=== PATIENT | female | born 1935 | race Caucasian/White ===

== ENCOUNTER 2021-04-17 16:25 | Inpatient (IN) ==
[2021-04-17] MEDS ORDERED: 0.9 % Sodium Chloride 1,000 ML IVC ONE (16:57)
[2021-04-17 17:37] LABS: Basophils % 0.4 %; Eosinophils % 0.3 %; Hematocrit 42.2 % (35.3-44.9); Hemoglobin 13.7 g/dL (11.5-15.4); Immature Granulocytes % 0.3 % (0-4); Lymphocytes # 0.7 K/mcL (0.6-4.6); Lymphocytes % 9.2 %; Mean Corpuscular HGB Conc 32.5 g/dL (31.6-35.5); Mean Corpuscular Hemoglobin 30.9 pg (28.0-33.3); Mean Corpuscular Volume 95.3 fL (83.0-100.0); Monocytes # 0.6 K/mcL (0.0-1.3); Monocytes % 7.4 %; Neutrophils # 6.2 K/mcL (1.6-8.9); Platelet Count 190 K/mcL (140-400); Red Blood Count 4.43 M/mcL (3.82-4.97); Red Cell Distribution Width 14.4 % (11.5-14.5); Segmented Neutrophils % 82.4 %; White Blood Count 7.5 K/mcL (4.3-11.1)
[2021-04-17 17:44] LABS: INR 1.1; Prothrombin Time 12.2 Seconds (9.4-12.1)
[2021-04-17 18:03] LABS: BUN/Creatinine Ratio 17 (6-26); Blood Urea Nitrogen 15 mg/dL (8-23); Calcium 9.3 mg/dL (8.6-10.3); Carbon Dioxide 28 mEq/L (23-29); Chloride 98 mEq/L (98-107); Glucose 156 mg/dL (70-105); Osmolality,Calculated 282 (280-300); Potassium 4.5 mEq/L (3.5-5.1); Sodium 134 mEq/L (136-145); eGFR For African Americans > 60 (> 60); eGFR For Non-African Americans 60 (> 60)
[2021-04-17 18:04] LABS: Troponin I < 0.03 ng/mL (< 0.04)
[2021-04-17] MEDS ORDERED: Naloxone 0.4 MG/ML INJ IVP PRN (18:36)
[2021-04-17] MEDS ORDERED: Ondansetron 4 MG/2 ML VIAL IVP PRN (18:36)
[2021-04-17] MEDS ORDERED: *HR* OxyCODONE/APAP 5/325 TABLET PO PRN (18:41)
[2021-04-17 19:36] LABS: Bilirubin,Urine Negative (Negative); Blood,Urine Negative (Negative); Clarity,Urine Clear (Clear); Color,Urine Light-Yellow (Yellow); Glucose,Urine (UA) Normal (Normal); Ketones,Urine Trace mg/dL (Negative); Leukocyte Esterase,Urine Negative (Negative); Nitrite,Urine Negative (Negative); PH,Urine 6.5 pH Units (5.0-8.0); Protein,Urine Trace mg/dL (Neg-Trace); Specific Gravity,Urine 1.018 (1.010-1.025); Urobilinogen,Urine Normal (Normal)
[2021-04-17 19:59] LABS: Adenovirus Not Detected (Not Detect); Bordetella Pertussis Not Detected (Not Detect); Chlamydophila pneumoniae Not Detected (Not Detect); Coronavirus 229E Not Detected (Not Detect); Coronavirus HKU1 Not Detected (Not Detect); Coronavirus NL63 Not Detected (Not Detect); Coronavirus OC43 Not Detected (Not Detect); Human Metapneumovirus Not Detected (Not Detect); Human Rhinovirus/Enterovirus Not Detected (Not Detect); Influenza A Subtype 2009 H1 Not Detected (Not Detect); Influenza B Not Detected (Not Detect); Mycoplasma pneumoniae Not Detected (Not Detect); Parainfluenza Virus 1 Not Detected (Not Detect); Parainfluenza Virus 2 Not Detected (Not Detect); Parainfluenza Virus 3 Not Detected (Not Detect); Parainfluenza Virus 4 Not Detected (Not Detect); Respiratory Syncytial Virus Not Detected (Not Detect); SARS-CoV-2 Not Detected (Not Detect)
[2021-04-17] MEDS ORDERED: Perflutren Lipid Microsphere 1.3 ML in 0.9 % Sodium Chloride 8.7 ML IVP PRN (20:39)
[2021-04-17] MEDS: GuaiFENesin Liq 200 MG/10 ML UDC PO PRN (23:15)
[2021-04-18 02:43] LABS: Basophils # 0.1 K/mcL (0.0-0.2); Basophils % 0.6 %; Eosinophils # 0.1 K/mcL (0.0-0.6); Eosinophils % 0.7 %; Hematocrit 37.1 % (35.3-44.9); Immature Granulocytes % 0.4 % (0-4); Lymphocytes # 1.1 K/mcL (0.6-4.6); Lymphocytes % 13.6 %; Mean Corpuscular HGB Conc 31.8 g/dL (31.6-35.5); Mean Corpuscular Hemoglobin 30.3 pg (28.0-33.3); Mean Corpuscular Volume 95.1 fL (83.0-100.0); Mean Platelet Volume 10.3 fL (9.4-12.4); Monocytes # 0.8 K/mcL (0.0-1.3); Monocytes % 9.3 %; Neutrophils # 6.1 K/mcL (1.6-8.9); Platelet Count 180 K/mcL (140-400); Red Cell Distribution Width 14.4 % (11.5-14.5); Segmented Neutrophils % 75.4 %; White Blood Count 8.1 K/mcL (4.3-11.1)
[2021-04-18 02:47] LABS: Hemoglobin 11.8 g/dL (11.5-15.4)
[2021-04-18 02:48] LABS: BUN/Creatinine Ratio 22 (6-26); Blood Urea Nitrogen 14 mg/dL (8-23); Calcium 8.4 mg/dL (8.6-10.3); Carbon Dioxide 28 mEq/L (23-29); Chloride 101 mEq/L (98-107); Glucose 108 mg/dL (70-105); Magnesium 1.8 mg/dL (1.6-2.6); Osmolality,Calculated 277 (280-300); Potassium 4.1 mEq/L (3.5-5.1); Sodium 133 mEq/L (136-145); eGFR For African Americans > 60 (> 60); eGFR For Non-African Americans > 60 (> 60)
[2021-04-18] MEDS: *HR* Heparin 5,000 UNIT/ML VIAL SQ SCH ×2 (06:39→16:19)
[2021-04-18] MEDS: *HR* OxyCODONE Immed Rel 5 MG TABLET PO PRN ×2 (12:12→19:37)
[2021-04-18] MEDS ORDERED: *HR* Labetalol 20 MG/4 ML SYRINGE IVP PRN (14:31)
[2021-04-18] MEDS: GuaiFENesin Liq 200 MG/10 ML UDC PO PRN (19:38)
[2021-04-19] MEDS: *HR* Heparin 5,000 UNIT/ML VIAL SQ SCH ×2 (04:39→16:52)
[2021-04-19] MEDS: *HR* OxyCODONE Immed Rel 5 MG TABLET PO PRN ×2 (04:47→19:47)
[2021-04-19] MEDS: amLODIPine 5 MG TABLET PO SCH (08:33)
[2021-04-19] MEDS: Folic Acid 1 MG TABLET PO SCH ×2 (08:33→19:48)
[2021-04-19] MEDS: Budesonide/Formoterol 160/4.5 1 PUFF INH IH SCH ×2 (11:11→20:16)
[2021-04-19] MEDS: Nicotine 21 MG PATCH.TD24 TD SCH (21:12)
[2021-04-20] MEDS: *HR* Heparin 5,000 UNIT/ML VIAL SQ SCH ×2 (05:47→16:35)
[2021-04-20] MEDS: Budesonide/Formoterol 160/4.5 1 PUFF INH IH SCH ×2 (07:30→20:18)
[2021-04-20] MEDS: amLODIPine 5 MG TABLET PO SCH (09:43)
[2021-04-20] MEDS: Folic Acid 1 MG TABLET PO SCH ×2 (09:43→22:10)
[2021-04-20] MEDS: *HR* HYDROcodone/Acet 5/325 mg TABLET PO PRN (09:44)
[2021-04-20] MEDS: Nicotine 21 MG PATCH.TD24 TD SCH (09:44)
[2021-04-21] MEDS: *HR* OxyCODONE Immed Rel 5 MG TABLET PO PRN ×2 (02:49→20:08)
[2021-04-21] MEDS: *HR* Heparin 5,000 UNIT/ML VIAL SQ SCH ×2 (05:29→15:25)
[2021-04-21] MEDS: Budesonide/Formoterol 160/4.5 1 PUFF INH IH SCH ×2 (07:49→19:57)
[2021-04-21] MEDS: Nicotine 21 MG PATCH.TD24 TD SCH (10:28)
[2021-04-21] MEDS: Folic Acid 1 MG TABLET PO SCH ×2 (10:28→20:08)
[2021-04-21] MEDS: *HR* HYDROcodone/Acet 5/325 mg TABLET PO PRN (10:32)
[2021-04-21] MEDS: amLODIPine 5 MG TABLET PO SCH (10:32)
[2021-04-21 17:01] LABS: Adenovirus Not Detected (Not Detect); Bordetella Pertussis Not Detected (Not Detect); Chlamydophila pneumoniae Not Detected (Not Detect); Coronavirus 229E Not Detected (Not Detect); Coronavirus HKU1 Not Detected (Not Detect); Coronavirus NL63 Not Detected (Not Detect); Coronavirus OC43 Not Detected (Not Detect); Human Metapneumovirus Not Detected (Not Detect); Human Rhinovirus/Enterovirus Not Detected (Not Detect); Influenza A Subtype 2009 H1 Not Detected (Not Detect); Influenza B Not Detected (Not Detect); Mycoplasma pneumoniae Not Detected (Not Detect); Parainfluenza Virus 1 Not Detected (Not Detect); Parainfluenza Virus 2 Not Detected (Not Detect); Parainfluenza Virus 3 Not Detected (Not Detect); Parainfluenza Virus 4 Not Detected (Not Detect); Respiratory Syncytial Virus Not Detected (Not Detect); SARS-CoV-2 Not Detected (Not Detect)
[2021-04-22] MEDS: *HR* Heparin 5,000 UNIT/ML VIAL SQ SCH ×2 (05:13→18:18)
[2021-04-22] MEDS: Budesonide/Formoterol 160/4.5 1 PUFF INH IH SCH ×2 (08:18→20:13)
[2021-04-22] MEDS ORDERED: Ipratropium/Albuterol Neb 3 ML IH ONE (08:26)
[2021-04-22 09:18] LABS: Basophils % 0.3 %; Eosinophils % 0.3 %; Hemoglobin 12.4 g/dL (11.5-15.4); Immature Granulocytes % 0.1 % (0-4); Lymphocytes # 0.6 K/mcL (0.6-4.6); Lymphocytes % 8.4 %; Mean Corpuscular HGB Conc 31.8 g/dL (31.6-35.5); Mean Corpuscular Hemoglobin 30.2 pg (28.0-33.3); Mean Corpuscular Volume 95.1 fL (83.0-100.0); Mean Platelet Volume 10.2 fL (9.4-12.4); Monocytes # 0.8 K/mcL (0.0-1.3); Monocytes % 11.6 %; Neutrophils # 5.7 K/mcL (1.6-8.9); Platelet Count 210 K/mcL (140-400); Segmented Neutrophils % 79.3 %; White Blood Count 7.2 K/mcL (4.3-11.1)
[2021-04-22] MEDS: Acetaminophen 325 MG TABLET PO PRN (09:27)
[2021-04-22] MEDS: Nicotine 21 MG PATCH.TD24 TD SCH (09:27)
[2021-04-22] MEDS: amLODIPine 5 MG TABLET PO SCH (09:27)
[2021-04-22] MEDS: Folic Acid 1 MG TABLET PO SCH ×2 (09:27→20:18)
[2021-04-22 09:37] LABS: BUN/Creatinine Ratio 36 (6-26); Blood Urea Nitrogen 21 mg/dL (8-23); Calcium 8.9 mg/dL (8.6-10.3); Carbon Dioxide 30 mEq/L (23-29); Chloride 97 mEq/L (98-107); Glucose 110 mg/dL (70-105); Osmolality,Calculated 280 (280-300); Potassium 4.2 mEq/L (3.5-5.1); Sodium 133 mEq/L (136-145); eGFR For African Americans > 60 (> 60); eGFR For Non-African Americans > 60 (> 60)
[2021-04-22] MEDS ORDERED: Isovue-370 500 ML BOTTLE IVP ONE (10:49)
[2021-04-22] MEDS ORDERED: Ipratropium/Albuterol Neb 3 ML IH PRN (14:17)
[2021-04-22] MEDS: Ipratropium/Albuterol Neb 3 ML IH SCH ×4 (15:31→23:40)
[2021-04-22] MEDS: Azithromycin 500 MG in 0.9 % Sodium Chloride 250 ML IVPB SCH (18:03)
[2021-04-22] MEDS: cefTRIAXone 1,000 MG in Water for inj. (sterile) 10 ML IVP SCH (18:04)
[2021-04-22] MEDS: predniSONE 20 MG TABLET PO SCH (18:13)
[2021-04-22 20:13] LABS: ABG Base Excess 4 mEq/L (-2 to 3); ABG HCO3 29 mEq/L (21-27); ABG Oxygen Saturation 86 % (95-98); ABG PCO2 47 mmHg (35-45); ABG PO2 52 mmHg (85-104); ABG TCO2 31 mEq/L (20-26)
[2021-04-22] MEDS ORDERED: Furosemide 20 MG/2 ML VIAL IVP ONE (20:19)
[2021-04-23 02:48] LABS: Basophils % 0.1 %; Hematocrit 38.5 % (35.3-44.9); Hemoglobin 12.5 g/dL (11.5-15.4); Immature Granulocytes % 0.3 % (0-4); Lymphocytes # 0.2 K/mcL (0.6-4.6); Lymphocytes % 1.9 %; Mean Corpuscular HGB Conc 32.5 g/dL (31.6-35.5); Mean Corpuscular Hemoglobin 31.2 pg (28.0-33.3); Mean Platelet Volume 10.4 fL (9.4-12.4); Monocytes # 0.4 K/mcL (0.0-1.3); Monocytes % 4.2 %; Neutrophils # 8.9 K/mcL (1.6-8.9); Platelet Count 218 K/mcL (140-400); Red Blood Count 4.01 M/mcL (3.82-4.97); Red Cell Distribution Width 13.9 % (11.5-14.5); Segmented Neutrophils % 93.5 %; White Blood Count 9.5 K/mcL (4.3-11.1)
[2021-04-23 03:07] LABS: Platelet Estimate Normal (Normal)
[2021-04-23 03:14] LABS: BUN/Creatinine Ratio 35 (6-26); Blood Urea Nitrogen 25 mg/dL (8-23); Calcium 9.1 mg/dL (8.6-10.3); Carbon Dioxide 31 mEq/L (23-29); Chloride 97 mEq/L (98-107); Glucose 172 mg/dL (70-105); Osmolality,Calculated 288 (280-300); Potassium 4.4 mEq/L (3.5-5.1); Sodium 135 mEq/L (136-145); eGFR For African Americans > 60 (> 60); eGFR For Non-African Americans > 60 (> 60)
[2021-04-23] MEDS: Ipratropium/Albuterol Neb 3 ML IH SCH ×10 (03:38→23:30)
[2021-04-23] MEDS: *HR* Heparin 5,000 UNIT/ML VIAL SQ SCH ×2 (04:58→15:54)
[2021-04-23] MEDS: Budesonide/Formoterol 160/4.5 1 PUFF INH IH SCH ×2 (07:22→19:23)
[2021-04-23] MEDS: Folic Acid 1 MG TABLET PO SCH ×2 (08:07→19:14)
[2021-04-23] MEDS: cefTRIAXone 1,000 MG in Water for inj. (sterile) 10 ML IVP SCH (08:07)
[2021-04-23] MEDS: predniSONE 20 MG TABLET PO SCH (08:07)
[2021-04-23] MEDS: amLODIPine 5 MG TABLET PO SCH (08:07)
[2021-04-23] MEDS: Nicotine 21 MG PATCH.TD24 TD SCH (08:07)
[2021-04-23] MEDS: Azithromycin 500 MG in 0.9 % Sodium Chloride 250 ML IVPB SCH (15:54)
[2021-04-23] MEDS: Acetaminophen 325 MG TABLET PO PRN (23:09)
[2021-04-24] MEDS: Ipratropium/Albuterol Neb 3 ML IH SCH ×10 (03:32→20:25)
[2021-04-24 03:40] LABS: Hematocrit 36.9 % (35.3-44.9); Hemoglobin 11.6 g/dL (11.5-15.4); Mean Corpuscular HGB Conc 31.4 g/dL (31.6-35.5); Mean Corpuscular Hemoglobin 29.7 pg (28.0-33.3); Mean Corpuscular Volume 94.6 fL (83.0-100.0); Mean Platelet Volume 10.1 fL (9.4-12.4); Platelet Count 262 K/mcL (140-400); Red Cell Distribution Width 13.8 % (11.5-14.5); White Blood Count 10.4 K/mcL (4.3-11.1)
[2021-04-24 03:55] LABS: BUN/Creatinine Ratio 63 (6-26); Blood Urea Nitrogen 40 mg/dL (8-23); Calcium 9.1 mg/dL (8.6-10.3); Carbon Dioxide 31 mEq/L (23-29); Chloride 95 mEq/L (98-107); Glucose 149 mg/dL (70-105); Osmolality,Calculated 287 (280-300); Potassium 3.9 mEq/L (3.5-5.1); Sodium 132 mEq/L (136-145); eGFR For African Americans > 60 (> 60); eGFR For Non-African Americans > 60 (> 60)
[2021-04-24] MEDS: *HR* Heparin 5,000 UNIT/ML VIAL SQ SCH ×2 (05:17→17:22)
[2021-04-24] MEDS: Budesonide/Formoterol 160/4.5 1 PUFF INH IH SCH ×2 (07:32→20:25)
[2021-04-24 09:10] LABS: Adenovirus Not Detected (Not Detect); Bordetella Pertussis Not Detected (Not Detect); Chlamydophila pneumoniae Not Detected (Not Detect); Coronavirus 229E Not Detected (Not Detect); Coronavirus HKU1 Not Detected (Not Detect); Coronavirus NL63 Not Detected (Not Detect); Coronavirus OC43 Not Detected (Not Detect); Human Metapneumovirus Not Detected (Not Detect); Human Rhinovirus/Enterovirus Not Detected (Not Detect); Influenza A Subtype 2009 H1 Not Detected (Not Detect); Influenza B Not Detected (Not Detect); Mycoplasma pneumoniae Not Detected (Not Detect); Parainfluenza Virus 1 Not Detected (Not Detect); Parainfluenza Virus 2 Not Detected (Not Detect); Parainfluenza Virus 3 Not Detected (Not Detect); Parainfluenza Virus 4 Not Detected (Not Detect); Respiratory Syncytial Virus Not Detected (Not Detect); SARS-CoV-2 Not Detected (Not Detect)
[2021-04-24] MEDS: Folic Acid 1 MG TABLET PO SCH ×2 (09:11→19:31)
[2021-04-24] MEDS: predniSONE 20 MG TABLET PO SCH (09:11)
[2021-04-24] MEDS: amLODIPine 5 MG TABLET PO SCH (09:11)
[2021-04-24] MEDS: cefTRIAXone 1,000 MG in Water for inj. (sterile) 10 ML IVP SCH (09:13)
[2021-04-24] MEDS: Nicotine 21 MG PATCH.TD24 TD SCH (09:17)
[2021-04-24] MEDS: Azithromycin 500 MG in 0.9 % Sodium Chloride 250 ML IVPB SCH (16:12)
[2021-04-25] MEDS: Ipratropium/Albuterol Neb 3 ML IH SCH ×8 (00:35→20:24)
[2021-04-25] MEDS: Acetaminophen 325 MG TABLET PO PRN (02:43)
[2021-04-25 04:52] LABS: Hematocrit 34.1 % (35.3-44.9); Hemoglobin 11.1 g/dL (11.5-15.4); Mean Corpuscular HGB Conc 32.6 g/dL (31.6-35.5); Mean Corpuscular Hemoglobin 30.7 pg (28.0-33.3); Mean Corpuscular Volume 94.5 fL (83.0-100.0); Platelet Count 266 K/mcL (140-400); Red Blood Count 3.61 M/mcL (3.82-4.97); Red Cell Distribution Width 13.7 % (11.5-14.5); White Blood Count 9.8 K/mcL (4.3-11.1)
[2021-04-25 05:09] LABS: BUN/Creatinine Ratio 57 (6-26); Blood Urea Nitrogen 31 mg/dL (8-23); Calcium 8.9 mg/dL (8.6-10.3); Carbon Dioxide 32 mEq/L (23-29); Chloride 95 mEq/L (98-107); Glucose 113 mg/dL (70-105); Osmolality,Calculated 281 (280-300); Potassium 4.1 mEq/L (3.5-5.1); Sodium 132 mEq/L (136-145); eGFR For African Americans > 60 (> 60); eGFR For Non-African Americans > 60 (> 60)
[2021-04-25] MEDS: *HR* Heparin 5,000 UNIT/ML VIAL SQ SCH ×2 (05:11→17:41)
[2021-04-25] MEDS: Budesonide/Formoterol 160/4.5 1 PUFF INH IH SCH ×2 (07:51→20:24)
[2021-04-25] MEDS: cefTRIAXone 1,000 MG in Water for inj. (sterile) 10 ML IVP SCH (07:54)
[2021-04-25] MEDS: amLODIPine 5 MG TABLET PO SCH (07:55)
[2021-04-25] MEDS: predniSONE 20 MG TABLET PO SCH (07:55)
[2021-04-25] MEDS: Folic Acid 1 MG TABLET PO SCH ×2 (07:55→19:25)
[2021-04-25] MEDS: Nicotine 21 MG PATCH.TD24 TD SCH (07:55)
[2021-04-25] MEDS: Azithromycin 500 MG in 0.9 % Sodium Chloride 250 ML IVPB SCH (13:33)
[2021-04-26] MEDS: Ipratropium/Albuterol Neb 3 ML IH SCH ×4 (03:37→20:08)
[2021-04-26] MEDS: *HR* Heparin 5,000 UNIT/ML VIAL SQ SCH ×2 (05:07→17:01)
[2021-04-26 05:49] LABS: Hematocrit 37.1 % (35.3-44.9); Hemoglobin 11.6 g/dL (11.5-15.4); Mean Corpuscular HGB Conc 31.3 g/dL (31.6-35.5); Mean Corpuscular Hemoglobin 29.6 pg (28.0-33.3); Mean Corpuscular Volume 94.6 fL (83.0-100.0); Mean Platelet Volume 9.9 fL (9.4-12.4); Platelet Count 286 K/mcL (140-400); Red Blood Count 3.92 M/mcL (3.82-4.97); Red Cell Distribution Width 13.7 % (11.5-14.5); White Blood Count 8.1 K/mcL (4.3-11.1)
[2021-04-26 05:56] LABS: BUN/Creatinine Ratio 40 (6-26); Blood Urea Nitrogen 27 mg/dL (8-23); Calcium 8.7 mg/dL (8.6-10.3); Carbon Dioxide 33 mEq/L (23-29); Chloride 95 mEq/L (98-107); Glucose 88 mg/dL (70-105); Osmolality,Calculated 277 (280-300); Potassium 4.4 mEq/L (3.5-5.1); Sodium 131 mEq/L (136-145); eGFR For African Americans > 60 (> 60); eGFR For Non-African Americans > 60 (> 60)
[2021-04-26] MEDS: cefTRIAXone 1,000 MG in Water for inj. (sterile) 10 ML IVP SCH (08:02)
[2021-04-26] MEDS: predniSONE 20 MG TABLET PO SCH (08:02)
[2021-04-26] MEDS: Nicotine 21 MG PATCH.TD24 TD SCH (08:02)
[2021-04-26] MEDS: amLODIPine 5 MG TABLET PO SCH (08:03)
[2021-04-26] MEDS: Folic Acid 1 MG TABLET PO SCH ×2 (08:03→21:14)
[2021-04-26] MEDS: Budesonide/Formoterol 160/4.5 1 PUFF INH IH SCH ×2 (10:19→20:07)
[2021-04-26] MEDS: Azithromycin 500 MG in 0.9 % Sodium Chloride 250 ML IVPB SCH (14:05)
[2021-04-27] MEDS: Acetaminophen 325 MG TABLET PO PRN ×2 (02:10→20:26)
[2021-04-27] MEDS: Ipratropium/Albuterol Neb 3 ML IH SCH ×4 (03:40→20:02)
[2021-04-27] MEDS: *HR* Heparin 5,000 UNIT/ML VIAL SQ SCH ×2 (05:56→17:11)
[2021-04-27] MEDS: cefTRIAXone 1,000 MG in Water for inj. (sterile) 10 ML IVP SCH (08:13)
[2021-04-27] MEDS: Nicotine 21 MG PATCH.TD24 TD SCH (08:14)
[2021-04-27] MEDS: amLODIPine 5 MG TABLET PO SCH (08:14)
[2021-04-27] MEDS: Folic Acid 1 MG TABLET PO SCH ×2 (08:14→20:27)
[2021-04-27] MEDS: predniSONE 20 MG TABLET PO SCH (08:14)
[2021-04-27] MEDS: Budesonide/Formoterol 160/4.5 1 PUFF INH IH SCH ×2 (09:51→20:02)
[2021-04-28 02:36] LABS: Hematocrit 35.6 % (35.3-44.9); Hemoglobin 11.7 g/dL (11.5-15.4); Mean Corpuscular HGB Conc 32.9 g/dL (31.6-35.5); Mean Corpuscular Hemoglobin 30.5 pg (28.0-33.3); Mean Platelet Volume 9.5 fL (9.4-12.4); Platelet Count 285 K/mcL (140-400); Red Blood Count 3.83 M/mcL (3.82-4.97); Red Cell Distribution Width 13.6 % (11.5-14.5); White Blood Count 11.8 K/mcL (4.3-11.1)
[2021-04-28 04:00] LABS: BUN/Creatinine Ratio 65 (6-26); Blood Urea Nitrogen 35 mg/dL (8-23); Calcium 9.1 mg/dL (8.6-10.3); Carbon Dioxide 30 mEq/L (23-29); Chloride 95 mEq/L (98-107); Glucose 88 mg/dL (70-105); Osmolality,Calculated 279 (280-300); Potassium 4.8 mEq/L (3.5-5.1); Sodium 131 mEq/L (136-145); eGFR For African Americans > 60 (> 60); eGFR For Non-African Americans > 60 (> 60)
[2021-04-28] MEDS: Ipratropium/Albuterol Neb 3 ML IH SCH ×4 (04:06→21:16)
[2021-04-28] MEDS: *HR* Heparin 5,000 UNIT/ML VIAL SQ SCH ×2 (05:42→18:20)
[2021-04-28] MEDS: cefTRIAXone 1,000 MG in Water for inj. (sterile) 10 ML IVP SCH (08:38)
[2021-04-28] MEDS: Acetaminophen 325 MG TABLET PO PRN ×2 (08:38→14:11)
[2021-04-28] MEDS: predniSONE 20 MG TABLET PO SCH (08:39)
[2021-04-28] MEDS: amLODIPine 5 MG TABLET PO SCH (08:39)
[2021-04-28] MEDS: Nicotine 21 MG PATCH.TD24 TD SCH (08:39)
[2021-04-28] MEDS: Folic Acid 1 MG TABLET PO SCH ×2 (08:39→19:25)
[2021-04-28] MEDS: Budesonide/Formoterol 160/4.5 1 PUFF INH IH SCH ×2 (11:49→21:16)
[2021-04-28] MEDS: *HR* HYDROcodone/Acet 5/325 mg TABLET PO PRN (19:25)
[2021-04-29] MEDS: Ipratropium/Albuterol Neb 3 ML IH SCH ×4 (03:15→20:51)
[2021-04-29] MEDS: *HR* Heparin 5,000 UNIT/ML VIAL SQ SCH ×2 (05:12→16:57)
[2021-04-29] MEDS: amLODIPine 5 MG TABLET PO SCH (08:08)
[2021-04-29] MEDS: predniSONE 20 MG TABLET PO SCH (08:08)
[2021-04-29] MEDS: Folic Acid 1 MG TABLET PO SCH ×2 (08:08→19:30)
[2021-04-29] MEDS: Nicotine 21 MG PATCH.TD24 TD SCH (08:08)
[2021-04-29] MEDS: cefTRIAXone 1,000 MG in Water for inj. (sterile) 10 ML IVP SCH (08:09)
[2021-04-29] MEDS: Budesonide/Formoterol 160/4.5 1 PUFF INH IH SCH ×2 (09:18→19:59)
[2021-04-30] MEDS: Acetaminophen 325 MG TABLET PO PRN (00:08)
[2021-04-30] MEDS: Ipratropium/Albuterol Neb 3 ML IH SCH ×4 (03:40→21:24)
[2021-04-30] MEDS: *HR* Heparin 5,000 UNIT/ML VIAL SQ SCH ×2 (05:45→18:46)
[2021-04-30] MEDS: Folic Acid 1 MG TABLET PO SCH ×2 (08:12→20:45)
[2021-04-30] MEDS: predniSONE 20 MG TABLET PO SCH (08:12)
[2021-04-30] MEDS: amLODIPine 5 MG TABLET PO SCH (08:12)
[2021-04-30] MEDS: Nicotine 21 MG PATCH.TD24 TD SCH (08:13)
[2021-04-30 09:33] LABS: Basophils % 0.4 %; Eosinophils # 0.1 K/mcL (0.0-0.6); Eosinophils % 1.3 %; Hematocrit 39.6 % (35.3-44.9); Hemoglobin 12.8 g/dL (11.5-15.4); Immature Granulocytes % 3.5 % (0-4); Lymphocytes # 1.7 K/mcL (0.6-4.6); Lymphocytes % 17.7 %; Mean Corpuscular HGB Conc 32.3 g/dL (31.6-35.5); Mean Corpuscular Hemoglobin 30.4 pg (28.0-33.3); Mean Corpuscular Volume 94.1 fL (83.0-100.0); Mean Platelet Volume 9.2 fL (9.4-12.4); Monocytes % 10.9 %; Neutrophils # 6.3 K/mcL (1.6-8.9); Platelet Count 319 K/mcL (140-400); Red Blood Count 4.21 M/mcL (3.82-4.97); Red Cell Distribution Width 14.2 % (11.5-14.5); Segmented Neutrophils % 66.2 %; White Blood Count 9.5 K/mcL (4.3-11.1)
[2021-04-30] MEDS: Budesonide/Formoterol 160/4.5 1 PUFF INH IH SCH ×2 (11:04→21:24)
[2021-04-30] MEDS: *HR* HYDROcodone/Acet 5/325 mg TABLET PO PRN (20:46)
[2021-05-01] MEDS: Ipratropium/Albuterol Neb 3 ML IH SCH ×4 (03:21→19:55)
[2021-05-01] MEDS: *HR* Heparin 5,000 UNIT/ML VIAL SQ SCH ×2 (05:42→17:40)
[2021-05-01] MEDS: Budesonide/Formoterol 160/4.5 1 PUFF INH IH SCH ×2 (09:39→19:55)
[2021-05-01] MEDS: Folic Acid 1 MG TABLET PO SCH ×2 (09:41→19:43)
[2021-05-01] MEDS: amLODIPine 5 MG TABLET PO SCH (09:41)
[2021-05-01] MEDS: Nicotine 21 MG PATCH.TD24 TD SCH (09:42)
[2021-05-01] MEDS: predniSONE 20 MG TABLET PO SCH (09:42)
[2021-05-01] MEDS: Acetaminophen 325 MG TABLET PO PRN (19:43)
[2021-05-02] MEDS: Ipratropium/Albuterol Neb 3 ML IH SCH ×3 (03:45→15:26)
[2021-05-02] MEDS: *HR* Heparin 5,000 UNIT/ML VIAL SQ SCH (06:18)
[2021-05-02] MEDS: Budesonide/Formoterol 160/4.5 1 PUFF INH IH SCH (07:39)
[2021-05-02] MEDS: Nicotine 21 MG PATCH.TD24 TD SCH (10:01)
[2021-05-02] MEDS: predniSONE 20 MG TABLET PO SCH (10:02)
[2021-05-02] MEDS: Folic Acid 1 MG TABLET PO SCH (10:03)
[2021-05-02] MEDS: amLODIPine 5 MG TABLET PO SCH (10:03)
[2021-05-02 12:09] VITALS: PULSE 99
[2021-05-02 15:27] VITALS: BP 133/65; TEMP 97.3; O2SAT 96
== END 2021-05-02 17:46 | DRG 551 ==
LOC: 3BNU 16:25 → EMEROOARM 16:25 → SUATTDRO 19:11 → 3BNU 20:10 → SUATTDRO 04-22 14:41
PROVIDERS: ADMIT Pharmacist; ATTEND Internal Medicine